=== PATIENT | male | born 1990 | race African-American/Black ===

== ENCOUNTER → 2018-05-18 | Outpatient (CLI) | payer OTHER ==
--- NOTE | 2018-05-18 14:02 | REP ---
Partial facial bones two views History: Foreign body There is no acute fracture or bone lesion. The sinuses are clear. There is no radiopaque foreign body. Impression: Normal study. Electronically Signed by Davis Lopez MD 05/18/2018 01:53 P
== END ==
LOC: M RAD 09:08
PROVIDERS: ATTEND Surgery
DX: Z03.89 Encounter for observation for other suspected diseases and conditions ruled out (principal)

== ENCOUNTER → 2018-05-28 | Outpatient (CLI) | payer OTHER ==
--- NOTE | 2018-05-28 11:17 | REP ---
MRI LUMBAR SPINE WITHOUT CONTRAST: HISTORY: Right foot numbness. Decreased signal intensity on T2-weighted images is present in the L5-S1 intervertebral disc. This represents disc degeneration. There is no disc bulge or herniation at the L1-2 and L3-4 levels. The nerves exit the neural foramina without compression. A diffuse disc bulge is present at the L2-3 level. This abuts the thecal sac. The L2 nerves exit the neural foramina without compression. A diffuse a disc bulge is present at the L4-5 level. This abuts the thecal sac. The L4 nerves exit the neural foramina without compression. A diffuse disc bulge and small right paracentral and intraforaminal disc protrusion are present at the L5-S1 level. There is minimal compression of the thecal sac and right S1 nerve as it exits the thecal sac. There is hypertrophy of the posterior articulating facets. There is compression of the right L5 nerve in the neural foramen. The left L5 nerve exits the neural foramen without compression. The conus medullaris is normal in appearance terminating at the level of the T12-L1 intervertebral disc. Normal signal intensity is present in the lumbar vertebral bodies. IMPRESSION: 1. Diffuse disc bulges at the L2-3 and L4-5 levels. The disc bulges abut the thecal sac. 2. Diffuse disc bulge and small right paracentral and intraforaminal disc protrusion at the L5-S1 level with minimal compression of the thecal sac and right S1 nerve as it exits the thecal sac. There is compression of the right L5 nerve in the neural foramen. Electronically Signed by Davis Lopez MD 05/28/2018 11:27 A
== END ==
LOC: M RAD 08:57
DX: M51.36 Other intervertebral disc degeneration, lumbar region (principal)